=== PATIENT | male | born 1935 | race Caucasian/White ===

== ENCOUNTER → 2016-06-25 | Outpatient (CLI) | payer OTHER, BC | END | disposition designated cancer center or children's hospital (05) | LOC: RAD 06-22 11:00 | DX: K80.20 Calculus of gallbladder without cholecystitis without obstruction (principal); N26.1 Atrophy of kidney (terminal); K57.10 Diverticulosis of small intestine without perforation or abscess without bleeding; J98.4 Other disorders of lung; K86.89 Other specified diseases of pancreas; R91.8 Other nonspecific abnormal finding of lung field; I25.10 Atherosclerotic heart disease of native coronary artery without angina pectoris | CPT/HCPCS: 71250; 74176 ==